=== PATIENT | male | born 1975 | race Caucasian/White ===

== ENCOUNTER → 2017-01-25 | Outpatient (CLI) | payer OTHER ==
[~2017-01-25] VITALS: Ht 168.9 cm; Wt 92.1 kg
== END | disposition home or self-care (01) ==
LOC: AMB 13:15
DX: C20 Malignant neoplasm of rectum (principal); D50.0 Iron deficiency anemia secondary to blood loss (chronic)
CPT/HCPCS: C1726; J3010

== ENCOUNTER → 2017-06-14 | Outpatient (CLI) | payer OTHER ==
[~2017-06-14] VITALS: Ht 168.9 cm; Wt 94.3 kg
== END | disposition home or self-care (01) ==
LOC: AMB 13:31
PROC: 0DJD8ZZ Inspection of Lower Intestinal Tract, Via Natural or Artificial Opening Endoscopic (ICD-10-PCS; principal; 2017-06-14)
DX: C20 Malignant neoplasm of rectum (principal); Z92.21 Personal history of antineoplastic chemotherapy; Z92.3 Personal history of irradiation; D50.0 Iron deficiency anemia secondary to blood loss (chronic)
CPT/HCPCS: J2250; J3010

== ENCOUNTER → 2017-07-12 | Outpatient (CLI) | payer OTHER | END | disposition home or self-care (01) | LOC: CDC 14:45 | DX: Z01.810 Encounter for preprocedural cardiovascular examination (principal); C20 Malignant neoplasm of rectum; R94.31 Abnormal electrocardiogram [ECG] [EKG] | CPT/HCPCS: 93000 ==

== ENCOUNTER 2017-07-15 22:03 | Inpatient (IN) | payer OTHER ==
[~2017-07-15] VITALS: Ht 170.2 cm; Wt 101.3 kg
[2017-07-16 05:44] VITALS: BP 139/92
[2017-07-16 17:17] VITALS: BP 141/81
[2017-07-16 19:30] VITALS: BP 120/69
[2017-07-16 23:15] VITALS: BP 127/71
[2017-07-17 06:06] LABS: HEMATOCRIT 38.7 % (38.0-50.0); MCH 30.8 PG (29.0-34.0); MCHC 33.9 G/DL (30.0-36.0); MCV 91.1 FL (86-99); PLATELET COUNT 234 K/uL (156-360); RBC DIS.WIDTH-CV 13.6 % (11.8-14.6); WHITE BLOOD COUNT 10.8 K/uL (4.1-10.2)
[2017-07-17 06:18] LABS: HEMOGLOBIN 13.1 G/DL (12.5-16.6); RED BLOOD COUNT 4.25 M/uL (4.00-5.50)
[2017-07-17 06:34] LABS: CHLORIDE 103 MEQ/L (99-109); GFR ESTIMATE (CALCULATED) > 59 mL/min/ (58.99-99999); GLUCOSE 142 mg/dL (70-99); POTASSIUM 4.4 MEQ/L (3.7-5.4); SODIUM 136 MEQ/L (136-147); UREA NITROGEN (BUN) 10 mg/dL (9-23)
[2017-07-17 07:45] VITALS: BP 130/76
[2017-07-17 16:00] VITALS: BP 137/84
[2017-07-17 20:10] VITALS: BP 139/86
[2017-07-18] VITALS (7 sets, daily range): BP systolic 120–143; BP diastolic 71–86
[2017-07-18 05:45] LABS: HEMOGLOBIN 12.4 G/DL (12.5-16.6); MCH 30.6 PG (29.0-34.0); MCHC 32.6 G/DL (30.0-36.0); MCV 93.8 FL (86-99); PLATELET COUNT 169 K/uL (156-360); RBC DIS.WIDTH-CV 14.1 % (11.8-14.6); RBC DIS.WIDTH-SD 48.1 % (39-53); RED BLOOD COUNT 4.05 M/uL (4.00-5.50); WHITE BLOOD COUNT 6.9 K/uL (4.1-10.2)
[2017-07-18 06:06] LABS: CHLORIDE 102 MEQ/L (99-109); CREATININE 0.9 MG/DL (0.6-1.3); GFR ESTIMATE (CALCULATED) > 59 mL/min/ (58.99-99999); GLUCOSE 106 mg/dL (70-99); POTASSIUM 4.6 MEQ/L (3.7-5.4); SODIUM 136 MEQ/L (136-147); UREA NITROGEN (BUN) 7 mg/dL (9-23)
[2017-07-19 03:40] VITALS: BP 138/81
[2017-07-19 06:07] LABS: HEMATOCRIT 37.2 % (38.0-50.0); HEMOGLOBIN 12.2 G/DL (12.5-16.6); MCH 30.3 PG (29.0-34.0); MCHC 32.8 G/DL (30.0-36.0); MCV 92.5 FL (86-99); PLATELET COUNT 188 K/uL (156-360); RBC DIS.WIDTH-CV 13.6 % (11.8-14.6); RBC DIS.WIDTH-SD 46.2 % (39-53); RED BLOOD COUNT 4.02 M/uL (4.00-5.50); WHITE BLOOD COUNT 5.5 K/uL (4.1-10.2)
[2017-07-19 06:21] LABS: CHLORIDE 102 MEQ/L (99-109); CREATININE 0.8 MG/DL (0.6-1.3); GFR ESTIMATE (CALCULATED) > 59 mL/min/ (58.99-99999); GLUCOSE 104 mg/dL (70-99); POTASSIUM 4.2 MEQ/L (3.7-5.4); SODIUM 135 MEQ/L (136-147); UREA NITROGEN (BUN) 6 mg/dL (9-23)
[2017-07-19 08:13] VITALS: BP 128/77
[2017-07-19 11:36] VITALS: BP 131/80
[2017-07-19 15:52] VITALS: BP 129/80
[2017-07-19 20:03] VITALS: BP 140/82
[2017-07-19 23:52] VITALS: BP 130/76
[2017-07-20 04:03] VITALS: BP 125/77
[2017-07-20 05:16] LABS: HEMATOCRIT 39.2 % (38.0-50.0); HEMOGLOBIN 13.5 G/DL (12.5-16.6); MCH 30.6 PG (29.0-34.0); MCHC 34.4 G/DL (30.0-36.0); MCV 88.9 FL (86-99); PLATELET COUNT 194 K/uL (156-360); RBC DIS.WIDTH-CV 13.3 % (11.8-14.6); RBC DIS.WIDTH-SD 43.4 % (39-53); RED BLOOD COUNT 4.41 M/uL (4.00-5.50); WHITE BLOOD COUNT 5.6 K/uL (4.1-10.2)
[2017-07-20 05:45] LABS: CHLORIDE 101 MEQ/L (99-109); CREATININE 0.8 MG/DL (0.6-1.3); GFR ESTIMATE (CALCULATED) > 59 mL/min/ (58.99-99999); GLUCOSE 113 mg/dL (70-99); POTASSIUM 3.8 MEQ/L (3.7-5.4); SODIUM 134 MEQ/L (136-147); UREA NITROGEN (BUN) 8 mg/dL (9-23)
[2017-07-20 07:37] VITALS: BP 138/85
[2017-07-20 11:50] VITALS: BP 132/84
[2017-07-20 16:23] VITALS: BP 138/87
[2017-07-20 19:25] VITALS: BP 139/78
[2017-07-20 23:09] VITALS: BP 134/86
[2017-07-21] VITALS (7 sets, daily range): BP systolic 120–148; BP diastolic 71–101
[2017-07-21 07:06] LABS: HEMATOCRIT 39.4 % (38.0-50.0); HEMOGLOBIN 13.4 G/DL (12.5-16.6); MCV 88.3 FL (86-99); PLATELET COUNT 232 K/uL (156-360); RBC DIS.WIDTH-CV 13.3 % (11.8-14.6); RBC DIS.WIDTH-SD 43.4 % (39-53); RED BLOOD COUNT 4.46 M/uL (4.00-5.50); WHITE BLOOD COUNT 5.7 K/uL (4.1-10.2)
[2017-07-21 07:37] LABS: CHLORIDE 101 MEQ/L (99-109); GFR ESTIMATE (CALCULATED) > 59 mL/min/ (58.99-99999); GLUCOSE 118 mg/dL (70-99); POTASSIUM 4.3 MEQ/L (3.7-5.4); SODIUM 135 MEQ/L (136-147); UREA NITROGEN (BUN) 13 mg/dL (9-23)
[2017-07-22 03:34] VITALS: BP 127/75
[2017-07-22 05:34] LABS: HEMATOCRIT 40.1 % (38.0-50.0); HEMOGLOBIN 13.5 G/DL (12.5-16.6); MCH 30.3 PG (29.0-34.0); MCHC 33.7 G/DL (30.0-36.0); MCV 89.9 FL (86-99); PLATELET COUNT 249 K/uL (156-360); RBC DIS.WIDTH-CV 13.7 % (11.8-14.6); RBC DIS.WIDTH-SD 45.1 % (39-53); RED BLOOD COUNT 4.46 M/uL (4.00-5.50); WHITE BLOOD COUNT 5.3 K/uL (4.1-10.2)
[2017-07-22 06:06] LABS: CHLORIDE 104 MEQ/L (99-109); CREATININE 0.9 MG/DL (0.6-1.3); GFR ESTIMATE (CALCULATED) > 59 mL/min/ (58.99-99999); GLUCOSE 110 mg/dL (70-99); POTASSIUM 4.1 MEQ/L (3.7-5.4); SODIUM 138 MEQ/L (136-147); UREA NITROGEN (BUN) 12 mg/dL (9-23)
[2017-07-22 08:20] VITALS: BP 126/80
[2017-07-22 11:56] VITALS: BP 129/76
[2017-07-22 15:49] VITALS: BP 131/75
[2017-07-22 23:21] VITALS: BP 126/70
[2017-07-23 05:47] LABS: HEMOGLOBIN 12.6 G/DL (12.5-16.6); MCH 30.2 PG (29.0-34.0); MCHC 34.1 G/DL (30.0-36.0); MCV 88.7 FL (86-99); PLATELET COUNT 245 K/uL (156-360); RBC DIS.WIDTH-CV 13.3 % (11.8-14.6); RBC DIS.WIDTH-SD 43.7 % (39-53); RED BLOOD COUNT 4.17 M/uL (4.00-5.50)
[2017-07-23 06:13] LABS: CHLORIDE 104 MEQ/L (99-109); CREATININE 0.9 MG/DL (0.6-1.3); GFR ESTIMATE (CALCULATED) > 59 mL/min/ (58.99-99999); GLUCOSE 110 mg/dL (70-99); POTASSIUM 4.3 MEQ/L (3.7-5.4); SODIUM 135 MEQ/L (136-147); UREA NITROGEN (BUN) 9 mg/dL (9-23)
[2017-07-23 07:43] VITALS: BP 127/75
[2017-07-23 15:03] VITALS: BP 117/74
[2017-07-23 23:52] VITALS: BP 121/70
[2017-07-24 06:00] LABS: HEMATOCRIT 36.1 % (38.0-50.0); HEMOGLOBIN 12.2 G/DL (12.5-16.6); MCH 29.7 PG (29.0-34.0); MCHC 33.8 G/DL (30.0-36.0); MCV 87.8 FL (86-99); PLATELET COUNT 297 K/uL (156-360); RBC DIS.WIDTH-CV 13.2 % (11.8-14.6); RBC DIS.WIDTH-SD 43.1 % (39-53); RED BLOOD COUNT 4.11 M/uL (4.00-5.50); WHITE BLOOD COUNT 5.1 K/uL (4.1-10.2)
[2017-07-24 06:21] LABS: CHLORIDE 102 MEQ/L (99-109); GFR ESTIMATE (CALCULATED) > 59 mL/min/ (58.99-99999); GLUCOSE 97 mg/dL (70-99); POTASSIUM 4.2 MEQ/L (3.7-5.4); SODIUM 137 MEQ/L (136-147); UREA NITROGEN (BUN) 9 mg/dL (9-23)
[2017-07-24 07:47] VITALS: BP 127/79
[2017-07-24] MEDS ORDERED: ROXICODONE5 MG PO (11:09)
[2017-07-24] MEDS ORDERED: BACTRIM,SEPT1 TABLET PO (11:09)
[2017-07-24 15:00] VITALS: BP 97/56
[2017-07-24 16:02] VITALS: BP 126/76
== END 2017-07-24 18:02 | disposition home or self-care (01) | DRG 330 ==
LOC: 2SOUTH → ENRESERV 22:03 → 2SOUTH 07-16 05:17 → ENRESERV 07-16 15:56 → 3EAST 07-16 16:51
PROVIDERS: Surgery
PROC: 0DJD8ZZ Inspection of Lower Intestinal Tract, Via Natural or Artificial Opening Endoscopic (ICD-10-PCS; principal; 2017-07-16)
PROC: 0T760DZ Dilation of Right Ureter with Intraluminal Device, Open Approach (ICD-10-PCS; principal; 2017-07-16)
PROC: 0DTN0ZZ Resection of Sigmoid Colon, Open Approach (ICD-10-PCS; principal; 2017-07-16)
PROC: 0DTJ0ZZ Resection of Appendix, Open Approach (ICD-10-PCS; principal; 2017-07-16)
PROC: 0DTP0ZZ Resection of Rectum, Open Approach (ICD-10-PCS; principal; 2017-07-16)
PROC: 0T160ZB Bypass Right Ureter to Bladder, Open Approach (ICD-10-PCS; principal; 2017-07-16)
DX: C20 Malignant neoplasm of rectum (principal); N99.71 Accidental puncture and laceration of a genitourinary system organ or structure during a genitourinary system procedure; D50.0 Iron deficiency anemia secondary to blood loss (chronic); Y83.8 Other surgical procedures as the cause of abnormal reaction of the patient, or of later complication, without mention of misadventure at the time of the procedure; L76.34 Postprocedural seroma of skin and subcutaneous tissue following other procedure; F17.290 Nicotine dependence, other tobacco product, uncomplicated
CPT/HCPCS: 71045; 80048; 82565; 85027; 87070; 87075; 87205; 88302; 88309; 94799; C2625; J0330; J1100; J1170; J1650; J2001; J2250; J2310; J2405; J2710; J2795; J3010; J3475; S0028; S0074